=== PATIENT | female | born 1960 | race Caucasian/White ===

== ENCOUNTER 2017-03-24 17:46 | Emergency (ER) | payer MEDICARE, OTHER ==
[~2017-03-24] VITALS: Ht 160 cm; Wt 59.0 kg
[2017-03-24] MEDS ORDERED: TOPAMAX (18:10)
[2017-03-24] MEDS ORDERED: VICODIN (18:10)
[2017-03-24] MEDS ORDERED: TREXIMET (18:10)
[2017-03-24] MEDS ORDERED: WELLBUTRIN (18:10)
[2017-03-24] MEDS ORDERED: XANAX (18:10)
[2017-03-24] MEDS ORDERED: HYDROMORPHONE 1 MG/1 ML DISP.SYRIN IM ONE (19:00)
[2017-03-24] MEDS ORDERED: PROMETHAZINE HCL 25 MG/1 ML VIAL IM ONE (19:00)
[2017-03-24] MEDS ORDERED: MORPHINE SULFATE 4 MG/1 ML DISP.SYRIN IM ONE (19:00)
[2017-03-24] MEDS ORDERED: PROMETHAZINE HCL 25 MG/1 ML VIAL ONE (19:11)
[2017-03-24] MEDS ORDERED: MORPHINE SULFATE 4 MG/1 ML DISP.SYRIN ONE (19:11)
[2017-03-24 19:17] VITALS: BP 129/89
--- NOTE | 2017-03-24 19:17 | NUR ---
Patient discharged to home in stable conditon. Written and verbal after care instructions given. Patient verbalizes understanding of instructions.pt walks in steady gait, pt not driving
== END 2017-03-24 19:26 | disposition home or self-care (01) ==
LOC: ER 17:46
DX: G43.909 Migraine, unspecified, not intractable, without status migrainosus (principal); Z88.6 Allergy status to analgesic agent
CPT/HCPCS: 96372 ×2; 99284; A4663; J2270; J2550